=== PATIENT | male | born 1970 | race Caucasian/White ===

== ENCOUNTER 2023-05-15 14:19 | Emergency (ER) | payer OTHER ==
[2023-05-15] MEDS ORDERED: Lidocaine 1% 5 ML VIAL INJECT ONE (15:19)
== END 2023-05-15 15:40 | disposition home or self-care (01) ==
LOC: JP.ED 14:19
DX: S60.450A Superficial foreign body of right index finger, initial encounter (principal); W45.8XXA Other foreign body or object entering through skin, initial encounter
CPT/HCPCS: 99282; 99283